=== PATIENT | male | born 1975 ===

== ENCOUNTER 2018-01-25 08:51 | Observation (INO) | payer BC ==
[~2018-01-25] VITALS: Ht 177.8 cm; Wt 79.4 kg
[~2018-01-25 08:51] MED LIST: BUPR100
[2018-01-25 10:29] LABS: BASOPHILS ABSOLUTE AUTO 0.03 K/mm3 (0.00-0.23); BASOPHILS PERCENT AUTO 0 % (0-2); EOSINOPHILS ABSOLUTE AUTO 0.08 K/mm3 (0.00-0.68); EOSINOPHILS PERCENT AUTO 1 % (0-6); Hematocrit 50.4 % (37.0-53.0); Hemoglobin 15.4 g/dL (13.5-17.5); IMMATURE GRAN ABSOLUTE AUTO 0.02 K/mm3 (0.00-0.10); IMMATURE GRAN PERCENT AUTO 0 % (0-1); LYMPHOCYTES ABSOLUTE AUTO 1.69 K/mm3 (0.84-5.20); LYMPHOCYTES PERCENT AUTO 21 % (21-46); MONOCYTES ABSOLUTE AUTO 0.59 K/mm3 (0.16-1.47); MONOCYTES PERCENT AUTO 7 % (4-13); Mean Corpuscular HGB 29.1 pg (26.0-34.0); Mean Corpuscular HGB Conc 30.6 g/dL (31.5-36.5); Mean Corpuscular Volume 95 fL (80-100); NEUTROPHILS ABSOLUTE AUTO 5.59 K/mm3 (1.96-9.15); NEUTROPHILS PERCENT AUTO 70 % (41-73); Platelet Count 306 K/mm3 (150-400); RDW Coefficient Variation 11.8 % (11.7-14.2); Red Blood Cell Count 5.29 M/mm3 (4.30-5.90)
[2018-01-25 10:59] LABS: Alanine Aminotransfer (ALT/SGP 29 U/L (12-78); Albumin, Blood 4.4 g/dL (3.4-5.0); Albumin/Globulin Ratio 1.1 (0.8-1.8); Alk Phos 58 U/L (50-136); Anion Gap 6 mmol/L (6-16); Aspartate Aminotrans (AST/SGOT 14 U/L (12-37); Bilirubin, Total 0.9 mg/dL (0.1-1.0); Blood Urea Nitrogen 15 mg/dL (8-24); Bun/Creatinine Ratio 16.8 (12.0-20.0); CO2, Blood 29 mmol/L (21-32); Calcium, Blood 8.7 mg/dL (8.5-10.1); Chloride, Blood 104 mmol/L (98-108); Creatinine, Blood 0.89 mg/dL (0.60-1.20); Ethanol (Alcohol), Blood, Med <3 mg/dL; Globulin, Blood 4.1 g/dL (2.2-4.0); Glomerular Filtration Rate >60 (60-); Glucose, Blood 167 mg/dL (70-99); Potassium, Blood 3.9 mmol/L (3.5-5.5); Salicylate <1.7 mg/dL (2.8-20.0); Sodium, Blood 139 mmol/L (136-145); Total Protein, Blood 8.5 g/dL (6.4-8.2)
[2018-01-25 11:11] LABS: Acetaminophen, Random <2.0 ug/mL (10.0-30.0)
[2018-01-25 14:23] LABS: Appearance, Urine Clear (Clear); Bilirubin, Urine Neg (Neg); Blood, Urine Neg (Neg); Color, Urine Yellow (P-Yellow); Glucose Qualitative, Urine Neg (Neg); Ketones, Urine Neg (Neg); Leukocyte Esterase, Urine Neg (Neg); Nitrite, Urine Neg (Neg); Protein, Urine Neg (Neg); Urobilinogen, Urine NORM (Normal)
[2018-01-25 14:50] LABS: U Amphetamine Screen Not Detected; U Barbituate Screen Not Detected; U Benzodiazapine Screen Not Detected; U Buprenorphine Screen Not Detected; U Cannabinoids Screen Not Detected; U Cocaine Screen Not Detected; U Methadone Screen Not Detected; U Methamphetamine Screen Not Detected; U Opiates Screen Not Detected; U Oxycodone Screen Not Detected; U Phencyclidine Screen Not Detected; U Propoxyphene Screen Not Detected
== END 2018-01-26 14:45 | disposition home or self-care (01) ==
LOC: ER 08:51 → EOR 08:52
PROVIDERS: Emergency Medicine
DX: R45.851 Suicidal ideations (principal); F32.9 Major depressive disorder, single episode, unspecified
CPT/HCPCS: 80053; 81003; 84443; 85025; 99285; G0378; G0480

== ENCOUNTER 2018-07-06 17:10 | Inpatient (IN) | payer BC ==
[~2018-07-06] VITALS: Ht 177.8 cm; Wt 81.1 kg
[2018-07-06 17:12] LABS: BASOPHILS ABSOLUTE AUTO 0.01 K/mm3 (0.00-0.23); BASOPHILS PERCENT AUTO 0 % (0-2); EOSINOPHILS PERCENT AUTO 0 % (0-6); Hematocrit 42.5 % (37.0-53.0); IMMATURE GRAN ABSOLUTE AUTO 0.03 K/mm3 (0.00-0.10); IMMATURE GRAN PERCENT AUTO 0 % (0-1); LYMPHOCYTES ABSOLUTE AUTO 0.71 K/mm3 (0.84-5.20); LYMPHOCYTES PERCENT AUTO 8 % (21-46); MONOCYTES ABSOLUTE AUTO 0.11 K/mm3 (0.16-1.47); MONOCYTES PERCENT AUTO 1 % (4-13); Mean Corpuscular HGB 28.9 pg (26.0-34.0); Mean Corpuscular HGB Conc 30.6 g/dL (31.5-36.5); Mean Corpuscular Volume 94 fL (80-100); Mean Platelet Volume 9.6 fL (9.1-12.4); NEUTROPHILS ABSOLUTE AUTO 8.21 K/mm3 (1.96-9.15); NEUTROPHILS PERCENT AUTO 91 % (41-73); Platelet Count 348 K/mm3 (150-400); RDW Coefficient Variation 11.8 % (11.7-14.2); RDW Standard Deviation 41.1 fL (35.1-46.3); White Blood Cell Count 9.07 K/mm3 (4.00-11.30)
[2018-07-06 17:44] LABS: Alanine Aminotransfer (ALT/SGP 25 U/L (12-78); Alk Phos 58 U/L (50-136); Anion Gap 5 mmol/L (6-16); Aspartate Aminotrans (AST/SGOT 7 U/L (12-37); Bilirubin, Total 0.5 mg/dL (0.1-1.0); Blood Urea Nitrogen 17 mg/dL (8-24); Bun/Creatinine Ratio 23.5 (12.0-20.0); CO2, Blood 29 mmol/L (21-32); Calcium, Blood 8.9 mg/dL (8.5-10.1); Chloride, Blood 104 mmol/L (98-108); Creatinine, Blood 0.72 mg/dL (0.60-1.20); Globulin, Blood 4.2 g/dL (2.2-4.0); Glomerular Filtration Rate >60 (60-); Glucose, Blood 134 mg/dL (70-99); Potassium, Blood 4.3 mmol/L (3.5-5.5); Sodium, Blood 138 mmol/L (136-145); Total Protein, Blood 8.2 g/dL (6.4-8.2)
[2018-07-06] MEDS ORDERED: BUPR150ER PO (18:29)
[2018-07-06] MEDS ORDERED: CYCL10 PO (18:29)
[2018-07-06] MEDS ORDERED: AMIT10 PO (18:31)
[2018-07-06] MEDS ORDERED: Mobic15 MG PO (18:31)
[2018-07-06] MEDS ORDERED: ANDROGEL75 GM TOP (18:31)
[2018-07-06] MEDS ORDERED: ACYC800 PO (18:31)
--- NOTE | 2018-07-06 22:41 | NUR ---
SPOKE WITH DR. KEE CONCERNING PT AND TO GET SOME ADMITTING ORDERS, SEE NEW ORDERS. PT ABLE TO HAVE CLEAR LIQUID DIET UNTIL 0000 AND THEN NPO PER DR. KEE, WILL MAKE PT AWARE. WILL START LR AND GIVE NEXT DOSE OF ZOSYN AT 0300. WILL CTM PT.
--- NOTE | 2018-07-06 23:59 | NUR ---
AMIJONNYION: REPORT RECIEVED FROM ED LEYDA ROQUE. PT TO UNIT AT ABOUT 2114. UPON ASSESSMENT, PT IS IN NO VISABLE DISTRESS,A/O,VSS, WALKED FROM WHEELCHAIR TO BED. PT DENIES PAIN, N/V. ADMISSION CHARTING COMPLETED AND BLOOD CONSENT SIGNED. PT PARENTS IN ROOM TO VISIT AT 2139. WILL CTM PT STATUS.
--- NOTE | 2018-07-07 05:00 | NUR ---
SUMMARY: NO CHANGE SINCE ADMISSION. PT SLEEPING ON AND OFF, A/O, USING CALL LIGHT. VSS AND ANTIBIOTIC INFUSED. HAS DENIED PAIN, N/V. WILL PASS REPORT TO ONCOMING RN.
--- NOTE | 2018-07-07 09:40 | NUR ---
PT TO OR AT APROX [id number]
[2018-07-07] MEDS ORDERED: OXYC10ER PO (15:21)
--- NOTE | 2018-07-07 16:00 | NUR ---
ASSUMED CARE OF PATIENT AT THIS TIME. PT IS AWAITING DC HOME.
--- NOTE | 2018-07-07 17:54 | NUR ---
PT HAS BEEN AWAITING DC SINCE THIS RN ASSUMED CARE. PT SARA DIET, PAIN CONTROLLED WITH PRN MEDS. IV DC'D. PT AMBULATING HALLWAYS AND INDEP TO BATHROOM. LAP SITES CDI. USES CALL LIGHT APPROPRIATELY PRN.
--- NOTE | 2018-07-07 18:18 | NUR ---
DISCHARGE: DC TO HOME AT THIS TIME WITH FAMILY. IV DC'D WNL. PT VERBALIZED UNDERSTANDING OF INSTRUCTIONS, FOLLOW UP, PROBLEMS TO REPORT AND MEDICATIONS. LEFT VIA WHEELCHAIR WITH BELONGINGS.
== END 2018-07-07 18:07 | disposition home or self-care (01) | DRG 343 ==
LOC: ER 17:10 → SURS 20:21 → CT 07-09 15:00
PROVIDERS: Nurse Practitioner Family; ADMIT Surgery
PROC: 0DTJ4ZZ Resection of Appendix, Percutaneous Endoscopic Approach (ICD-10-PCS; principal; 2018-07-07 09:00)
DX: K35.80 Unspecified acute appendicitis (principal)
CPT/HCPCS: 36415; 72192; 80053; 85025; 96365; 99284-25; J1100; J1885; J2250; J2405; J2543; J3010; J7030; J7120

== ENCOUNTER → 2020-05-07 | Outpatient (CLI) | payer BC ==
[~2020-05-07] MED LIST changes: +ACYC800 PO; +AMIT10 PO; +ANDROGEL75 GM TOP; +BUPR150ER PO; +CYCL10 PO; +Mobic15 MG PO; +OXYC10ER PO
[2020-05-07 14:01] LABS: BASOPHILS ABSOLUTE AUTO 0.03 K/mm3 (0.00-0.23); BASOPHILS PERCENT AUTO 1 % (0-2); EOSINOPHILS ABSOLUTE AUTO 0.22 K/mm3 (0.00-0.68); EOSINOPHILS PERCENT AUTO 4 % (0-6); Hematocrit 43.3 % (37.0-53.0); Hemoglobin 13.6 g/dL (13.5-17.5); IMMATURE GRAN ABSOLUTE AUTO 0.01 K/mm3 (0.00-0.10); IMMATURE GRAN PERCENT AUTO 0 % (0-1); LYMPHOCYTES ABSOLUTE AUTO 1.68 K/mm3 (0.84-5.20); LYMPHOCYTES PERCENT AUTO 32 % (21-46); MONOCYTES ABSOLUTE AUTO 0.38 K/mm3 (0.16-1.47); MONOCYTES PERCENT AUTO 7 % (4-13); Mean Corpuscular HGB 28.6 pg (26.0-34.0); Mean Corpuscular HGB Conc 31.4 g/dL (31.5-36.5); Mean Corpuscular Volume 91 fL (80-100); Mean Platelet Volume 9.2 fL (9.1-12.4); NEUTROPHILS ABSOLUTE AUTO 2.98 K/mm3 (1.96-9.15); NEUTROPHILS PERCENT AUTO 56 % (41-73); Platelet Count 313 K/mm3 (150-400); RDW Coefficient Variation 11.8 % (11.7-14.2); RDW Standard Deviation 39.5 fL (35.1-46.3); Red Blood Cell Count 4.76 M/mm3 (4.30-5.90)
[2020-05-07 14:43] LABS: PSA, %Free 29.6 %; PSA, Free 0.218 ng/mL; Prostate Specific Antigen 0.737 ng/mL (0.000-4.000)
[2020-05-08 19:09] LABS: FREE TESTOSTERONE(DIRECT) 15.1 pg/mL (6.8-21.5); SEX HORM BINDING GLOB, SERUM 20.1 nmol/L (16.5-55.9)
== END ==
LOC: OLS 13:07 → LAB SHORT 13:07
PROVIDERS: Internal Medicine Endocrinology, Diabetes & Metabolism
DX: E29.1 Testicular hypofunction (principal)
CPT/HCPCS: 36415; 84153; 84154; 84270; 84402; 84403; 85025

== ENCOUNTER 2022-09-12 22:47 | Emergency (ER) | payer BC ==
[~2022-09-12] VITALS: Ht 175.3 cm; Wt 90.7 kg
[2022-09-12] MEDS ORDERED: TOPI25 PO (23:00)
[2022-09-12] MEDS ORDERED: PRAVACHOL20 M1 PO (23:00)
[2022-09-12] MEDS ORDERED: VALA500 PO (23:01)
[2022-09-13 05:26] VITALS: BP 138/78
== END 2022-09-13 06:07 | disposition short-term general hospital (02) ==
LOC: ER 22:47
DX: H40.9 Unspecified glaucoma (principal)
CPT/HCPCS: 70450; A9270; J1885

== ENCOUNTER → 2024-09-10 | Outpatient (CLI) | payer BC ==
[~2024-09-10] MED LIST changes: +PRAVACHOL20 M1 PO; +TOPI25 PO; +VALA500 PO
== END ==
LOC: LAB SHORT 18:42 → LAB 18:42
DX: L02.611 Cutaneous abscess of right foot (principal)
CPT/HCPCS: 87070; 87075; 87205

== ENCOUNTER → 2024-10-21 | Outpatient (CLI) | payer BC | LOC: LAB 10:32 → LAB SHORT 10:32 | DX: L03.115 Cellulitis of right lower limb (principal); L02.611 Cutaneous abscess of right foot | CPT/HCPCS: 87070; 87075; 87205; 88305; 88311 ==